=== PATIENT | female | born 1975 | race Caucasian/White ===

== ENCOUNTER 2018-11-28 06:04 | Day surgery (SDC) | payer OTHER ==
[2018-11-28] MEDS ORDERED: FENTAnyl 50 MCG/ML VIAL (09:03)
[2018-11-28] MEDS ORDERED: MIDAZOLAM 1 MG/ML 2 ML INJ (09:03)
== END 2018-11-28 11:52 | disposition home or self-care (01) ==
LOC: GIL 06:04
DX: K44.9 Diaphragmatic hernia without obstruction or gangrene (principal); K21.0 Gastro-esophageal reflux disease with esophagitis; K31.7 Polyp of stomach and duodenum
CPT/HCPCS: 43239; 88305